=== PATIENT | male | born 1970 | race Caucasian/White ===

== ENCOUNTER 2025-06-11 08:51 | Outpatient (AMB) | payer OTHER, SELFPAY ==
--- NOTE | 2025-06-11 08:52 | MHC.OFFVIS ---
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 Pt states no loss of balance or dizziness or blurred vision. Was getting headaches w/ pre-orgasm and had to stop intercourse. This started 5 yrs ago. 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 The finding was identified on a CT scan ordered by his primary doctor for evaluation of severe, pulsating headaches with neck tension occurring during orgasm. The headaches are considered unrelated to the carotid finding. The patient's CT scan showed a 50-69% stenosis described as an eccentric, wedge-shaped filling defect at the origin of the right internal carotid artery, suspicious for a carotid web, while the left carotid artery is relatively clean. He does not have typical risk factors for carotid disease, denying a history of smoking, diabetes, high blood pressure, or high cholesterol. Past surgical history is significant for a vasectomy last January, from which he reports persistent pain, and a hiatal hernia repair for acid reflux which did not resolve his symptoms. Family history is notable for a maternal stroke in her mid-60s and a father with high blood pressure. He now presents for vascular evaluation with CT angiogram. Of note he can easily climb a flight of stairs with no issues. [facility] Social History (Updated 06/11/25 @ 09:00 by IVANA Mas) Patient Tobacco Use Status: Never used Tobacco Review of Systems Const All systems reviewed & are unremarkable except as noted in HPI and below Reports no additional complaints ENT Reports Normal hearing present Card Denies chest pain, Denies chest pain at rest, Denies chest pain with activity and Denies pedal edema Resp Denies cough GI Denies abdominal pain Musc Denies abnormal gait, Denies muscle cramps and Denies radiating pain into limb Skin/Breast Denies skin ulcer and Denies wounds Neuro Reports Normal hearing present and Denies abnormal gait Psych Reports no additional complaints Physical Exam Vital Signs: Last Vital Signs BP 110/82 06/11/25 09:03 BMI result Body Mass Index 22.7 Const General: cooperative, healthy appearing and comfortable Orientation/consciousness: oriented to person, oriented to place and oriented to time HEENT Head: Yes normal to inspection Neck Neck: Yes normal visual inspection Carotids: no bruits Chest Chest palpation & inspection: normal inspection of the chest Resp Effort & Inspection: normal respiratory effort and able to speak in complete sentences Auscultation: clear to auscultation bilaterally, no crackles, no rales, no rhonchi and no wheezes Cardio Rate: regular rate Rhythm: regular rhythm Heart sounds: S1 normal heart sound present and S2 normal heart sound present Bruits: no carotid bruits Peripheral pulses: Peripheral pulses 2+ throughout GI Inspection: Yes normal to inspection Skin Wounds: no wounds Hair: normal Neuro General: oriented to person, oriented to place and oriented to time Cranial nerves: Yes CN's II-XII intact bilaterally and Yes Normal hearing present Cognition (Neuro): normal cognition Motor exam (neuro): 5/5 motor strength present throughout Extrem Other: venous exam: No significant superficial varicosities or spider telangiectasias, minimal edema General: No clubbing, No cyanosis and No edema Psych Appearance: grossly normal Mental Status: mental status grossly normal Speech and movement: Normal speech and movement present Results Reviewed Results Reviewed: CT angiogram dated 06/03/2025 demonstrates right carotid web. Written report and images were reviewed. Images were uploaded to our system. Assessment & Plan Assessment & Plan (1) Carotid stenosis, right: Code(s): I65.21 - Occlusion and stenosis of right carotid artery Category: Medical Plan: In short patient has high-grade right carotid stenosis. We did discuss the pathophysiology of carotid disease and stroke. We also did review signs and symptoms of a stroke. Due to the unusual finding of this carotid web in his young age I do recommend right carotid endarterectomy. Risks benefits complications including but not limited to bleeding infection stroke and were discussed in detail with the patient. He understood and would like to move forward. He will require cardiac risk stratification prior to surgery. Thank you for allowing us to assist in his care. Coding Level of Care Code New Pt Level 4 (50296) Diagnoses Carotid stenosis, right I65.21
[2025-06-11 08:55] VITALS: BP 114/80; BMI 22.7
--- OUTSIDE RECORDS SUMMARY | 2025-06-11 08:56 | XMS_ITS | Encounter Summary ---
Author Organization [facility] Address [address] [place] [address] Phone Care Team Providers Care Baling Machine Operator Name Role Phone Tej Cobian CNP Primary Care Provider +1- [phone] Encounter Details Date Type Department Care Team (Late st Contact Info) Description 05/26/2025 Procedure Pass [facility], Ct Scan - [address] [address] Social History Tobacco Use Types Packs/Day Years Used Date Smoking Tobacco: Never Passive Smoke Exposure: Never Smokeless Tobacco: Never Alcohol Use Standard Drinks/Week Comments Yes 10 (1 standard drink = 0.6 oz pu re alcohol) Child or Family Care Answer Date Record ed Do you have problems with on e of the following making it difficult for you to work, study, or receive health care? No 12/11/2023 Education Answer Date Recorded Are you interested in help w ith more adult education (for example, completing high school, GED, job training, learning the [place] language, technical skills, or developing parenting skills)? No 12/11/2023 Are you concerned about learning? Not on file 12/11/2023 No 12/11/2023 Yes 12/11/2023 Food Answer Date Recorded Within the past 6 months we worried whether our food would run out before we got money to buy more. Never True 12/11/2023 Within the past 6 months the food we bought just didn't last and we didn't have enough money to get more. Never True Residential Stability Answer Date Recor ded What is your housing situation today? I have eleonora gibson 12/11/2023 How many times have you move d in the past 12 months? Zero (I did not move) 12/11/2023 Paying for Meds Answer Date Recorded Do you have trouble paying for medicines? No 12/11/2023 Paying Utility Bills Answer Date Record ed Do you have trouble paying your heating or elect ricity bill? No 12/11/2023 Transportation Answer Date Recorded Has the lack of transportati on kept you from medical appointments or from getting medications? No 12/11/2023 Digital Access Answer Date Recorded No 12/11/2023 Yes 12/11/2023 Do you have reliable internet access at home? Ye s 12/11/2023 Do you have a device (e.g., phone, tablet, computer) with a working camera? Yes 12/11/2023 Intimate Partner Violence Answer Date R ecorded Are you denied basic needs s uch as food, clothing, or medical care? No 10/27/2024 In the past 12 months have y ou been in a relationship with a person who hurts, threatens, or tries to control you? No 10/27/2024 Are you denied basic needs s uch as food, clothing, or medical care? No 10/27/2024 In the past 12 months have y ou been in a relationship with a person who hurts, threatens, or tries to control you? 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 on file Not on file Not on file documented as of this encounter Plan of Treatment Upcoming Encounters Date Type Department Care Team (Late st Contact Info) Description 07/01/2025 9:30 AM EST Office Visit [facility] [address] [place] [id number] Unknown, Unknown, Anita Queen PA-C [address] [place] [address] [email or web address] documented as of this encounter Visit Diagnoses Not on filedocumented in this encounter Additional Health Concerns Assessment Noted Time PHQ-2 Depression Total Score: 1 10/28/19 25 11:04 AM EDT documented as of this encounter Care Teams Baling Machine Operator Relationship Specialty Start Date End Date Tej Cobian CNP [address] [place] [address] [email or web address] PCP - General Family Medicine 05/15/23 documented as of this encounter Additional Source Comments The information contained in this document represents components of the legal health record. It is not the complete legal health record.[facility]
--- OUTSIDE RECORDS SUMMARY | 2025-06-11 08:57 | XMS_ITS | Encounter Summary ---
Author Organization [facility] Address [address] [place] [address] Phone Care Team Providers Care Cherry Sorter Name Role Phone Tej Cobian CNP Primary Care Provider +1- [phone] Encounter Details Date Type Department Care Team ([facility] st Contact Info) Description 11/28/2023 Procedure Pass [facility] Endoscopy Admitting Dept Virtual Department [address] [place] [address] Social History Tobacco Use Types Packs/Day Years Used Date Smoking Tobacco: Never Passive Smoke Exposure: Never Smokeless Tobacco: Never Child or Family Care Answer Date Record ed Do you have problems with on e of the following making it difficult for you to work, study, or receive health care? No 05/09/2023 Education Answer Date Recorded Are you interested in help w ith more adult education (for example, completing high school, GED, job training, learning the [place] language, technical skills, or developing parenting skills)? No 05/09/2023 Are you concerned about learning? Not on file 05/09/2023 No 05/09/2023 Yes 05/09/2023 Food Answer Date Recorded Within the past 6 months we worried whether our food would run out before we got money to buy more. Never True 05/09/2023 Within the past 6 months the food we bought just didn't last and we didn't have enough money to get more. Never True Residential Stability Answer Date Recor ded What is your housing situation today? I have eleonora sing 05/09/2023 How many times have you move d in the past 12 months? Zero (I did not move) 05/09/2023 Paying for Meds Answer Date Recorded Do you have trouble paying for medicines? No 05/09/2023 Paying Utility Bills Answer Date Record ed Do you have trouble paying your heating or elect ricity bill? No 05/09/2023 Transportation Answer Date Recorded Has the lack of transportati on kept you from medical appointments or from getting medications? No 05/09/2023 Digital Access Answer Date Recorded No 05/09/2023 Yes 05/09/2023 Do you have reliable internet access at home? Ye s 05/09/2023 Do you have a device (e.g., phone, tablet, computer) with a working camera? Yes 05/09/2023 Sex and Gender Information Value Date Recorded Sex Assigned at Not on file Legal Sex Male 9:52 AM EST Gender Identity Not on file Sexual Orientation Not on file documented as of this encounter Plan of Treatment Upcoming Encounters Date Type Department Care Team (Late st Contact Info) Description 07/01/2025 9:30 AM EST Office Visit [facility] [address] [place] [address] Unknown, Unknown, Anita Queen PA-C [address] [address] documented as of this encounter Visit Diagnoses Not on filedocumented in this encounter Additional Health Concerns Assessment Noted Time PHQ-2 Depression Total Score: 0 05/09/20 23 1:43 PM EST documented as of this encounter Care Teams Cherry Sorter Relationship Specialty Start Date End Date Tej Cobian CNP [address] [facility] [address] PCP - General Family Medicine 05/15/23 documented as of this encounter Additional Source Comments The information contained in this document represents components of the legal health record. It is not the complete legal health record.[facility]
--- OUTSIDE RECORDS SUMMARY | 2025-06-11 08:57 | XMS_ITS | Encounter Summary ---
Author Organization [facility] Address [address] [place] [phone] Phone Care Team Providers Care Radius Corner Machine Operator Name Role Phone Tej Cobian CNP Primary Care Provider +1- [phone] Encounter Details Date Type Department Care Team (Late st Contact Info) Description 05/01/2024 Procedure Pass [place] Admitting Dept - Virtual Department [address] [place] [address] Social History Tobacco Use Types Packs/Day Years [...] high school, GED, job training, learning the [place] language, technical skills, or developing parenting skills)? [...] housing situation today? I have eleonora sing 12/11/2023 How many times have you move [...] as food, clothing, or medical care? No 05/01/2024 In the past 12 months have y ou been in a relationship with a person who hurts, threatens, or tries to control you? No 05/01/2024 Are you denied basic needs s uch as food, clothing, or medical care? No 05/01/2024 In the past 12 months have y ou been in a relationship with a person who hurts, threatens, or tries to control you? No 05/01/2024 Sex and Gender Information Value Date Recorded [...] Description 07/01/2025 9:30 AM EST Office Visit [facility] [address] [place] [phone] Unknown, Unknown, Anita Queen PA-C [address] [place] [address] [email or web address] documented as of this encounter Visit Diagnoses Not on filedocumented in this encounter Additional Health Concerns Assessment Noted Time PHQ-2 Depression Total Score: 0 12/11/19 8:58 AM EDT documented as of this encounter Care Teams Radius Corner Machine Operator Relationship Specialty Start Date End Date Tej Cobian CNP [address] [place] [address] [email or web address] PCP - General Family Medicine 05/15/23 documented as of this encounter Additional Source Comments The information contained in this document represents components of the legal health record. It is not the complete legal health record.[facility]
--- OUTSIDE RECORDS SUMMARY | 2025-06-11 08:57 | XMS_ITS | Data Portability ---
Author Organization [facility], [employer] Address [address] [place] [id number] Assessment Encounter Date Assessment Date Assessment LastModified by Organization Details LastModified Time 10/25/2022 10/25/2022 Number and Complexity of Problems Addressed: Moderate Amount and/or Complexity of Data to be Reviewed and Analyzed: Moderate Risk of Complications and/or Morbidity and Mortality of Patient Management: Not available 10/25/2022 15:37:17 Plan of Treatment Reminders Order Date Submit Date Provider Last Modified By Organization Details Last Modified Time Details Appointments None record ed. Lab None record ed. Referral None record ed. Procedures None record ed. Surgeries None record ed. Imaging None record ed. Medication Orders None record ed. Patient TargetsNo targets recorded. Patient InstructionsNo instructions recorded. Reason for Referral None Reported. Results Created Date Observation Date Name Description Value Unit Range Abnormal Flag Note LastModifiedBy Organization Detail LastModifiedTime 10/27/1910/26/2022 COMPL ETE BLOOD COUNT WBC 5.0 K/mm3 (4.0-1 1.0) Not Available [facility] (Centralized Electronic Ordering - All Locations) Patient Can Go To The Location Of Their Choice, [id number] 10/26/2022 16:04:36 10/27/1910/26/2022 COMPL ETE BLOOD COUNT RBC 5.34 M/mm3 (4.70- 6.10) Not Available [facility] (Centralized Electronic Ordering - All Locations) Patient Can Go To The Location Of Their Choice, [id number] 10/26/2022 16:04:36 10/27/1910/26/2022 COMPL ETE BLOOD COUNT HGB 16.1 gm/dL (13.7- 17.1) Not Available [facility] (Centralized Electronic Ordering - All Locations) Patient Can Go To The Location Of Their Choice, 10/26/2022 16:04:36 10/27/1910/26/2022 COMPL ETE BLOOD COUNT HCT 48.4 % (40.5- 50.0) Not Available [facility] (Centralized Electronic Ordering - All Locations) Patient Can Go To The Location Of Their Choice, 10/26/2022 16:04:36 10/27/1910/26/2022 COMPL ETE BLOOD COUNT MCV 90.6 fL (80.0- 94.0) Not Available [facility] (Centralized Electronic Ordering - All Locations) Patient Can Go To The Location Of Their Choice, 10/26/2022 16:04:36 10/27/1910/26/2022 COMPL ETE BLOOD COUNT MCH 30.1 pg (27.0- 34.0) Not Available [facility] (Centralized Electronic Ordering - All Locations) Patient Can Go To The Location Of Their Choice, 10/26/2022 16:04:36 10/27/1910/26/2022 COMPL ETE BLOOD COUNT MCHC 33.3 g/dL (33.0- 37.0) Not Available [facility] (Centralized Electronic Ordering - All Locations) Patient Can Go To The Location Of Their Choice, 10/26/2022 16:04:36 10/27/1910/26/2022 COMPL ETE BLOOD COUNT plt 254 K/mm3 (150-4 60) Not Available [facility] (Centralized Electronic Ordering - All Locations) Patient Can Go To The Location Of Their Choice, 10/26/2022 16:04:36 10/27/1910/26/2022 COMPL ETE BLOOD COUNT RDW-SD 41.8 fL (<47.0 ) Not Available [facility] (Centralized Electronic Ordering - All Locations) Patient Can Go To The Location Of Their Choice, 10/26/2022 16:04:36 10/27/1910/26/2022 COMPL ETE BLOOD COUNT MPV 8.9 fL (9.4-1 2.4) low Not Available [facility] (Centralized Electronic Ordering - All Locations) Patient Can Go To The Location Of Their Choice, 10/26/2022 16:04:36 10/27/1910/26/2022 COMPL ETE BLOOD COUNT automated NRBC 0.0 #/100 _WBC' s Not Available [facility] (Centralized Electronic Ordering - All Locations) Patient Can Go To The Location Of Their Choice, 10/26/2022 16:04:36 10/27/1910/26/2022 COMPL ETE BLOOD COUNT abs. NRBC 0.0 K/mm3 Not Available [facility] (Centralized Electronic Ordering - All Locations) Patient Can Go To The Location Of Their Choice, 10/26/2022 16:04:36 10/27/1910/26/2022 COMPR EHENS MIKHAIL METAB OLIC PANL glucose 96 mg/dL (70-99 ) Not Available [facility] (Centralized Electronic Ordering - All Locations) Patient Can Go To The Location Of Their Choice, 10/26/2022 16:49:54 10/27/1910/26/2022 COMPR EHENS MIKHAIL METAB OLIC PANL BUN 17 mg/dL (6-20) Not Available [facility] (Centralized Electronic Ordering - All Locations) Patient Can Go To The Location Of Their Choice, 10/26/2022 16:49:54 10/27/1910/26/2022 COMPR EHENS MIKHAIL METAB OLIC PANL creatinine 1.1 mg/dL (0.7-1 .2) Not Available [facility] (Centralized Electronic Ordering - All Locations) Patient Can Go To The Location Of Their Choice, 10/26/2022 16:49:54 10/27/1910/26/2022 COMPR EHENS MIKHAIL METAB OLIC PANL sodium 141 mmol/ L (133-1 45) Not Available [facility] (Centralized Electronic Ordering - All Locations) Patient Can Go To The Location Of Their Choice, 10/26/2022 16:49:54 10/27/1910/26/2022 COMPR EHENS MIKHAIL METAB OLIC PANL potassium 4.5 mmol/ L (3.6-5 .2) Not Available [facility] (Centralized Electronic Ordering - All Locations) Patient Can Go To The Location Of Their Choice, 10/26/2022 16:49:54 10/27/1910/26/2022 COMPR EHENS MIKHAIL METAB OLIC PANL chloride 105 mmol/ L (98-10 7) Not Available [facility] (Centralized Electronic Ordering - All Locations) Patient Can Go To The Location Of Their Choice, 10/26/2022 16:49:54 10/27/1910/26/2022 COMPR EHENS MIKHAIL METAB OLIC PANL bicarbonate 26 mmol/ L (22-29 ) Not Available [facility] (Centralized Electronic Ordering - All Locations) Patient Can Go To The Location Of Their Choice, 10/26/2022 16:49:54 10/27/1910/26/2022 COMPR EHENS MIKHAIL METAB OLIC PANL anion gap 10 (4-17) Not Available [facility] (Centralized Electronic Ordering - All Locations) Patient Can Go To The Location Of Their Choice, 10/26/2022 16:49:54 10/27/1910/26/2022 COMPR EHENS MIKHAIL METAB OLIC PANL albumin 4.5 gm/dL (3.4-4 .8) Not Available [facility] (Centralized Electronic Ordering - All Locations) Patient Can Go To The Location Of Their Choice, 10/26/2022 16:49:54 10/27/1910/26/2022 COMPR EHENS MIKHAIL METAB OLIC PANL calcium 9.4 mg/dL (8.6-1 0.5) Not Available [facility] (Centralized Electronic Ordering - All Locations) Patient Can Go To The Location Of Their Choice, 10/26/2022 16:49:54 10/27/1910/26/2022 COMPR EHENS MIKHAIL METAB OLIC PANL bilirubin,to tariq 0.6 mg/dL (0-1.2 ) Not Available [facility] (Centralized Electronic Ordering - All Locations) Patient Can Go To The Location Of Their Choice, 10/26/2022 16:49:54 10/27/1910/26/2022 COMPR EHENS MIKHAIL METAB OLIC PANL total protein 7.0 gm/dL (6.2-8 .2) Not Available [facility] (Centralized Electronic Ordering - All Locations) Patient Can Go To The Location Of Their Choice, 10/26/2022 16:49:54 10/27/1910/26/2022 COMPR EHENS MIKHAIL METAB OLIC PANL Ag ratio 1.8 Not Available [facility] (Centralized Electronic Ordering - All Locations) Patient Can Go To The Location Of Their Choice, 10/26/2022 16:49:54 10/27/1910/26/2022 COMPR EHENS MIKHAIL METAB OLIC PANL AST 33 U/L (0-40) Not Available [facility] (Centralized Electronic Ordering - All Locations) Patient Can Go To The Location Of Their Choice, 10/26/2022 16:49:54 10/27/1910/26/2022 COMPR EHENS MIKHAIL METAB OLIC PANL alk phos 57 U/L (40-12 9) Not Available [facility] (Centralized Electronic Ordering - All Locations) Patient Can Go To The Location Of Their Choice, 10/26/2022 16:49:54 10/27/1910/26/2022 COMPR EHENS MIKHAIL METAB OLIC PANL ALT 51 U/L (0-41) high Not Available [facility] (Centralized Electronic Ordering - All Locations) Patient Can Go To The Location Of Their Choice, 10/26/2022 16:49:54 10/27/1910/26/2022 COMPR EHENS MIKHAIL METAB OLIC PANL estimated GFR creatinine 77 mL/mi n/1.7 3_M2 Creat inine based estim ated glome rular filtr ation (eGFR ) in adult s is calcu lated using the Natio nal Kidne y Found ation recom sadaf d 2020 CKD-E PI equat ion. Estim ates GFR from serum creat inine , age and sex. Not Available [facility] (Centralized Electronic Ordering - All Locations) Patient Can Go To The Location Of Their Choice, 10/26/2022 16:49:54 10/27/1910/26/2022 LIPID PANEL cholesterol, total 209 mg/dL (<200) high Not Available [facility] (Centralized Electronic Ordering - All Locations) Patient Can Go To The Location Of Their Choice, 10/26/2022 16:49:55 10/27/1910/26/2022 LIPID PANEL triglyceride 81 mg/dL (<150) Not Available [facility] (Centralized [facility] Ordering - All Locations) Patient Can Go To The Location Of Their Choice, 10/26/2022 16:49:55 10/27/1910/26/2022 LIPID PANEL HDL chol 62 mg/dL (>39) Not Available [facility] (Centralized Electronic Ordering - All Locations) Patient Can Go To The Location Of Their Choice, 10/26/2022 16:49:55 10/27/1910/26/2022 LIPID PANEL LDL cholesterol, calculated 131 mg/dL (0-130 ) high Not Available [facility] (Centralized Electronic Ordering - All Locations) Patient Can Go To The Location Of Their Choice, 10/26/2022 16:49:55 10/27/1910/26/2022 LIPID PANEL non HDL cholesterol (calc) 147 mg/dL (<160) Not Available [facility] (Centralized Electronic Ordering - All Locations) Patient Can Go To The Location Of Their Choice, 10/26/2022 16:49:55 10/27/1910/26/2022 TSH WITH REFLE X TO FT4 TSH 2.16 uIU/m L (0.4-4 .2) Not Available [facility] (Centralized Electronic Ordering - All Locations) Patient Can Go To The Location Of Their Choice, 10/26/2022 16:54:25 10/27/1910/27/2022 ANTI- HEPAT ITIS C W/RFL X HCV QNT anti-hepatit is C (neg) normal NEGAT MIKHAIL Refer ence range : Negat mikhail This test was perfo rmed on the Abbot t Archi tect immun oassa y syste m. Not Available [facility] (Centralized Electronic Ordering - All Locations) Patient Can Go To The Location Of Their Choice, 10/27/2022 00:02:06 Result Notes None recorded. Problems Name Problem SNOMED Code Status Onset Date Resolution Date Notes Provider Name and Address Organization Details Recorded Time Basal cell carcinoma of skin 258522567 Active 2022 2016-fol lowed by [facility] Dragan Valdes NP [address] [facility] [address], [place], [address] , [facility] 15:11:11 Gastroesopha geal reflux disease 860290507 Active 2022 Bea Valdes NP [address] [facility] [address], [place], [address], [place] [facility] 3 15:11:21 Hiatal hernia 79940468 Active 2022 Bea Valdes NP [address] [facility] [address], [facility] [place], [address], [place] [facility] 15:13:11 Metabolic dysfunction- associated steatohepati tis 529157492 Active 2022 Bea Valdes NP [address] [address], [place], [address], [place] [facility] 11:28:27 Problem Notes None recorded. Procedures Surgical History Date Name Laterality Status Provider Name and Address Organization Details Recorded Time 1 Colonoscopy completed Bea Valdes NP [address] [address], [place], [address], [place] [facility] 10/25/2022 15:12:11 Imaging Results None recorded. Procedure Notes None recorded. Medical Equipment None Reported. Allergies No known drug allergies Medications Name Sig Start Date Stop Date Status Note LastModified by Organization Details LastModified Time valacyclovi r 500 mg tablet Take 1 Tablet Daily by Mouth active Not Available Not Available No t Available doxycycline monohydrate 100 mg capsule active Not Available Not Available Not Available lansoprazol e 30 mg capsule,del ayed release Take 1 Tablet daily by Mouth active Not Available Not Available No t Available fluocinonid e 0.05 % topical cream APPLY 2 TIMES DAILY TO AFFECTED AREAS FOR TWO WEEKS active Not Available Not Available No t Available Paxlovid 300 mg (150 mg x 2)-100 mg tablets in a dose pack TAKE 3 TABLETS BY MOUTH TWICE A DAY FOR 5 DAYS 10/24 completed Not Available Not Available Not Available Vitals Date Recorded Body weight Body mass index (BMI) Body height Oxygen saturation Heart rate Systolic And Diastolic Provider Name and Address Organization Details Last Updated DateTime 3 69256.8 7 g 23.4 kg/m2 190.5 cm 98 % 75 /min 116/78 mm[Hg] Anh Luz [place] - [facility] 15:03:27 Date Recorded Body height Body mass index (BMI) Body weight Oxygen saturation Heart rate Systolic And Diastolic Provider Name and Address Organization Details Last Updated DateTime 3 187.96 cm 24 kg/m2 61612.4 7 g 98 % 74 /min 122/78 mm[Hg] Anh Luz [place] - [facility] 10:58:11 Social History Question Answer Notes LastModified by Organizat ion Details LastModified Time Tobacco Smoking Status Never Smoker Anh Luz null, [place] [facility] 10/25/2022 14:57:31 Do You Have An Advance Directive? Yes Information not available 10/25/2022 How Many Children Do You Have? 4 Information not available 10/27/2022 What Is Your Relationship Status? Information not available 10/27/2022 Sex: Unknown Functional Status Question Answer Note LastModified by Organizat ion Details LastModified Time Do you use any illicit or recreational drugs? No Information not available 10/25/2022 What is your level of alcohol consumption? 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 None Information not available 10/27/2022 Mental Status None recorded. Family History Relationship Description Onset Age of this Age Resolved Age Notes LastModified by Organization Details LastModified Time Father Malignant lymphoma [email or web address] Not available 2022 15:13:35 Medical History No medical history recorded. Immunizations Vaccine Type Date Status Note Provider Nam e and Address Organization Details Recorded Time zoster recombinant 06/19/2020 completed Bea Valdes NP [address], [address], [place] [facility] 10/25/2022 15:19:12 zoster recombinant 08/17/2020 completed Bea Valdes NP [address], [address], [place] [facility] 10/25/2022 15:19:16 Tdap 10/25/2022 julio Valdes NP [address], [address], [place] [facility] 10/25/2022 15:36:30 Past Encounters Encounter ID Performer Location Encounter Start Date Encounter Closed Date Diagnosis/Indication Diagnosis SNOMED-CT Code Diagnosis ICD10 Code Diagnosis IMO Codes Diagnosis Note [id number] Bea Valdes NP [facility] [address] [facility] [place] [address] 10/25/2022 14:51:37 10/25/2022 15:28:18 Active or passive immunization 478567756 Z23 Gastroesop hageal reflux disease 425194891 K21.9 On PPI, may be interested in repeating EGD/colo. I will review his GI note and advise further. Basal cell carcinoma of skin 041959305 C44.91 Followed every 6 months by [facility]. [id number] Bea Valdes NP [facility] [address] [facility] [place] [address] 10/27/2022 10:51:54 10/27/2022 11:24:04 Adult health examination 878817351 Z00.00 52 year old male here for his annual physical. Immunizati ons and colonoscop y are up to date. Basal cell carcinoma of skin 493233018 C44.91 Followed every 6 months by [facility]. Gastroesop hageal reflux disease 051961877 K21.9 On PPI, may be interested in repeating EGD/colo. He is weighing pros and cons of repeating EGD/colo sooner than the 3 year recommenda tion. Metabolic dysfunction-associate d steatohepatitis 713551828 K75.81 ALT mildly elevated but he reports this is better than the previous value. Health Concerns Section Related Observation LastModified by Organization Detai ls LastModified Time None Recorded Concern Status LastModified by Organization Details LastModified Time None Recorded Advance Directives Directive Y: Payers Insurance Date Sequence Insurance Name Policy Number Policy Andrews Covered Member ID Andrews Member ID Guarantor Name 04/13/2023 1 [facility] [id number] Tori Cedeno [id number] Mariano Kwok Notes Date Note Type Note Provider Name and Address Organization Details Recorded Time 10/25/2022 text/html ROS as noted in the HPI Here as a new patient to the practice, moved here from [place] last year. He is overall feeling well. Due for a physical, which is actually scheduled in 2 days from now. He will need labs. Due for a tdap. He is up to date on colonoscopy. Bea Valdes NP [address] [facility] [address], [place], [address], [place] [facility] 10/25/2022 15:38:31 10/27/2022 text/html Here for his annual physical. Overall feeling well. He does have chronic right elbow tendonitis. He also has some difficulty sleeping. He has used trazodone and ambien in the past with side effects. He has not tried benadryl, unisom or hydroxyzine.Labs are all WNL, colonoscopy and immunizations are up to date. Bea Valdes NP [address] [facility] [address], [place], [address], [place] [facility] 10/27/2022 11:30:04
--- OUTSIDE RECORDS SUMMARY | 2025-06-11 08:57 | XMS_ITS | Encounter Summary ---
Author Organization [facility] Address [address] [place] [address] Phone Care Team Providers Care Cocoa Bean Cleaner Name Role Phone Tej Cobian CNP Primary Care Provider [phone]- [phone] Reason for Referral * Consultation (Within 3 days (urgent)) - Authorized Specialty Diagnoses / Procedures Referred By Contac t Referred To Contact Diagnoses Abnormal computed tomography angiography (CTA) Tej Cobian CNP [address] [place] [address] Phone: tel: fax: mailto: Sal Diana MD [address] [place] [address] Phone: tel: Referral ID Status Reason Start Date Expiration Date V isits Requested Visits Authorized [id number] Authorized 06/05/2025 06/05/2026 99 99 Reason for Visit * Reason Onset Date Comments Follow-up 06/05/2025 callback Encounter Details Date Type Department Care Team (Late st Contact Info) Description 06/05/2025 Telephone [facility] [address] [place] [address] Tej Cobian CNP [address] [place] [address] Follow-up (callback) Social History Tobacco Use Types Packs/Day Years [...] high school, GED, job training, learning the Azerbaijani language, technical skills, or developing parenting skills)? [...] on file documented as of this encounter Progress Notes * Ayana Pickett RN - 06/06/2025 1:39 PM EST [facility] called back on back line; patient is scheduled for next Monday 06/11 with theiroffice. * Tej Cobian CNP - 06/06/2025 12:01 PM EST Spoke with Dr. Diana's office. Received CTA and referral. Advise that Dr. Diana is out of the office but is going to reach out to him to review the imaging and determine if urgent or not and/or if needs to be seen by endovascular. Office will call back on back line with update once they hear from * Maryls An LPN - 06/06/2025 8:40 AM EST Faxed * Jonas Ortiz RN - 06/05/2025 4:27 PM EST Fax for Dr. Diana: * Tej Cobian CNP - 06/05/2025 3:16 PM EST Spoke with patient. 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 Encourage to start Aspirin 81 mg. Urgent referral also sent to vascular, advised if does not hear with appt by next week to notify our office * Patt Benz - 06/05/2025 2:57 PM EST Pt called back after missing call from P Vern.please contact and advise Central Support Patch Setter (Please do not reply to this user; this inbox is not monitored.) Thank you. documented in this encounter Plan of Treatment Upcoming Encounters Date Type Department Care Team (Late st Contact Info) Description 07/01/2025 9:30 AM EST Office Visit [facility] [address] [place] [address] Unknown, Unknown, Anita Queen PA-C [address] [address] [email or web address] Scheduled Referrals Name Type Priority Associated Diagnoses Orde r Schedule Ambulatory referral to External Vascular Medicine Outpatient Referral Routine Abnormal computed tomography angiography (CTA) Ordered: 06/05/2025 documented as of this encounter Visit Diagnoses Diagnosis Abnormal computed tomography angiography (CTA)- Primary documented in this encounter Additional Health Concerns Assessment Noted Time PHQ-2 Depression Total Score: 1 10/28/19 25 11:04 AM EDT documented as of this encounter Care Teams Cocoa Bean Cleaner Relationship Specialty Start Date End Date Tej Cobian CNP [address] [place] [address] PCP - General Family Medicine 05/15/23 documented as of this encounter Additional Source Comments The information contained in this document represents components of the legal health record. It is not the complete legal health record.[facility]
--- OUTSIDE RECORDS SUMMARY | 2025-06-11 08:57 | XMS_ITS | Encounter Summary ---
Author Organization [facility] Address [address] [place] [address] Phone Care Team Providers Care Retail Loss Prevention Investigator Name Role Phone Tej Cobian CNP Primary Care Provider +1- [phone] Encounter Details Date Type Department Care Team (Late st Contact Info) Description 01/03/2024 Procedure Pass [facility] Endoscopy Admitting Dept Virtual Department [address] [place] [address] Social History Tobacco Use Types Packs/Day Years Used Date Smoking Tobacco: Never Passive Smoke Exposure: Never Smokeless Tobacco: Never Alcohol Use Standard Drinks/Week Comments Yes 5 (1 standard drink = 0.6 oz pur e alcohol) 5 per week Child or Family Care Answer Date Record ed Do you have problems with on e of the following making it difficult for you to work, study, or receive health care? No 12/11/2023 Education Answer Date Recorded Are you interested in help w ith more adult education (for example, completing high school, GED, job training, learning the Samoan language, technical skills, or developing parenting skills)? [...] computer) with a working camera? Yes 12/11/2023 Sex and Gender Information Value Date Recorded Sex Assigned at Not on file Legal Sex Male 9:52 AM EST Gender Identity Not on file Sexual Orientation Not on file documented as of this encounter Plan of Treatment Upcoming Encounters Date Type Department Care Team (Late st Contact Info) Description 07/01/2025 9:30 AM EST Office Visit [facility] [address] [place] [address] Unknown, Unknown, Anita Queen PA-C [address] [address] documented as of this encounter Visit Diagnoses Not on filedocumented in this encounter Additional Health Concerns Assessment Noted Time PHQ-2 Depression Total Score: 0 12/11/19 8:58 AM EDT documented as of this encounter Care Teams Retail Loss Prevention Investigator Relationship Specialty Start Date End Date Tej Cobian CNP [address] [facility] [place] [address] PCP - General Family Medicine 05/15/23 documented as of this encounter Additional Source Comments The information contained in this document represents components of the legal health record. It is not the complete legal health record.[facility]
--- OUTSIDE RECORDS SUMMARY | 2025-06-11 08:57 | XMS_ITS | Encounter Summary ---
Author Organization [facility] Address [address] [place] [address] Phone Care Team Providers Care Evp Global Product Leadership Name Role Phone Tej Cobian CNP Primary Care Provider +1- [phone] Encounter Details Date Type Department Care Team (Late st Contact Info) Description 01/05/2024 Procedure Pass [facility] Endoscopy Admitting Dept Virtual Department [address] [place] [address] Social History Tobacco Use Types Packs/Day Years [...] high school, GED, job training, learning the Puerto Rican language, technical skills, or developing parenting skills)? [...] Description 07/01/2025 9:30 AM EST Office Visit [facility] [address] [place] [address] Unknown, Unknown, Anita Queen PA-C [address] [address] documented as of this encounter Visit Diagnoses Not on filedocumented in this encounter Additional Health Concerns Assessment Noted Time PHQ-2 Depression Total Score: 0 12/11/19 8:58 AM EDT documented as of this encounter Care Teams Evp Global Product Leadership Relationship Specialty Start Date End Date Tej Cobian CNP [address] [facility] [place] [address] PCP - General Family Medicine 05/15/23 documented as of this encounter Additional Source Comments The information contained in this document represents components of the legal health record. It is not the complete legal health record.[facility]
--- OUTSIDE RECORDS SUMMARY | 2025-06-11 08:57 | XMS_ITS | Encounter Summary ---
Author Organization [facility] Address [address] [place] [address] Phone Care Team Providers Care Rerecording Mixer Name Role Phone Tej Cobian CNP Primary Care Provider +1- [phone] Reason for Referral * MRI/CAT Scan - Closed Specialty Diagnoses / Procedures Referred By Nory prater Referred To Contact Radiology Diagnoses Orgasmic headache Procedures CT Angio Head and Neck CT Angio Head CT ANGIO NECK Tej Cobian CNP [address] [place] [address] Phone: tel: fax: mailto: Referral ID Status Reason Start Date Expiration Date Visits Re quested Visits Authorized [id number] Closed 05/26/2025 05/27/2026 1 1 Encounter Details Date Type Department Care Team (Late st Contact Info) Description 06/03/2025 Ancillary Orders [facility] [address] [place] [address] Tej Cobian CNP [address] [place] [address] [email or web address] History of herpes genitalis (Primary Dx); Orgasmic headache; Persistent testicular pain Social History Tobacco Use Types Packs/Day Years [...] high school, GED, job training, learning the Guyanese language, technical skills, or developing parenting skills)? [...] Description 07/01/2025 9:30 AM EST Office Visit [facility] [address] [place] [address] Unknown, Unknown, Anita Queen PA-C [address] [address] [email or web address] documented as of this encounter Results * CT ANGIO HEAD WITH AND WITHOUT CONTRAST, CT ANGIO NECK WITH CONTRAST (06/03/2025 4:09 PM EST) Anatomical Region Laterality Modality Neck Computed Tomogra phy 06/05/2025 9:19 AM EST Impressions 06/05/2025 9:43 AM EST 1. Eccentric wedge-shaped filling defect at the origin of the right internal carotid artery, resulting in moderate stenosis, most suspicious for a carotid web. 2. Mild stenosis at the origin of the left internal carotid artery. 3. No acute territorial infarct or intracranial hemorrhage. Narrative 06/05/2025 9:[address] ANGIO HEAD WITH AND WITHOUT CONTRAST, CT ANGIO NECK WITH CONTRAST, CT ANGIO NECK WITH CONTRAST Referring clinician's provided indication for this examination in Epic: *Other Anomalies Or Syndromes TECHNIQUE: Multidetector-row CTA of the head was performed before and after administration of intravenous contrast using tailored dose modulation techniques. Images were reconstructed in the axial, coronal, and sagittal planes, including angiographic image post-processing. 3D angiographic images with reformatting and post- processing reconstructions were performed and interpreted. Multidetector-row CTA of neck was also performed after administration of intravenous contrast using tailored dose modulation techniques. Images were reconstructed in the axial, coronal, and sagittal planes. 3D angiographic images with reformatting and post-processing reconstructions were performed and interpreted. COMPARISON: None. (accession [id number]), CT HEAD WITHOUT CONTRAST (accession [id number]) FINDINGS: HEAD CT: Brain Parenchyma: There is no mass-effect, midline shift, or space-occupying lesion. There is no acute territorial infarct or intracranial hemorrhage. Ventricular System and Extra-Axial Spaces: The ventricles, sulci and cisterns are age-appropriate. There is no extra-axial fluid collection. Osseous and Extracranial Structures: There is no displaced calvarial fracture. The visualized paranasal sinuses are clear. The mastoid air cells are clear. The orbits and soft tissues are unremarkable. CTA HEAD: Anterior Circulation: The intracranial internal carotid arteries are normal in configuration. The anterior and middle cerebral arteries are patent with normal contrast enhancement and branching pattern. There is a normal anterior communicating artery complex. Posterior Circulation: The vertebral and basilar arteries demonstrate normal enhancement without stenosis or occlusion. The posterior cerebral arteries have a normal caliber and branching pattern. Venous Structures: Normal. No thrombosis. CTA NECK: Aortic Arch and Origin of Major Cervical Vessels: The visualized aortic arch and origins of the major vessels are unremarkable. Right Common Carotid Artery: Normal. No stenosis, occlusion or dissection. Right Internal Carotid Artery: There is an eccentric wedge-shaped filling defect on the posterior aspect the origin of the right internal carotid artery, resulting in moderate stenosis. There is distal reconstitution. Left Common Carotid Artery: Normal. No stenosis, occlusion or dissection. Left Internal Carotid Artery: Calcified atherosclerotic plaque is present at the carotid bulb resulting in mild stenosis of the proximal internal carotid artery. External Carotid Arteries: Normal. No stenosis, occlusion or dissection. Right Vertebral Artery: Normal. No stenosis, occlusion or dissection. Left Vertebral Artery: Normal. No stenosis, occlusion or dissection. Venous Structures: Normal. The jugular veins enhance normally. NON-VASCULAR FINDINGS Thyroid: Normal. No thyroid nodules. Lines/tubes: None. Lungs and Airways: Normal. No mass in the imaged lung apices and central airways. Soft Tissues: Normal. No adenopathy. Bones: Normal. CAROTID STENOSIS REFERENCE: -Distal internal carotid artery diameter as the denominator for stenosis measurement: MILD = <50% stenosis. MODERATE = 50-69% stenosis. SEVERE = 70-89% stenosis. HAIRLINE/CRITICAL = 90-99% stenosis. OCCLUDED = 100% stenosis. Procedure Note Diaz Gaytan MD - 06/05/2025 CT ANGIO HEAD WITH AND WITHOUT CONTRAST, CT ANGIO NECK WITH CONTRAST, CTANGIO NECK WITH CONTRAST Referring clinician's provided indication for this examination in Epic:*Other Anomalies Or Syndromes TECHNIQUE: Multidetector-row CTA of the head was performed before and afteradministration of intravenous contrast using tailored dose modulationtechniques. Images were reconstructed in the axial, coronal, and sagittalplanes, including angiographic image post-processing. 3D angiographicimages with reformatting and post-processing reconstructions wereperformed and interpreted. Multidetector-row CTA of neck was also performed after administration ofintravenous contrast using tailored dose modulation techniques. Imageswere reconstructed in the axial, coronal, and sagittal planes. 3Dangiographic images with reformatting and post-processing reconstructionswere performed and interpreted. COMPARISON: None. (accession [id number]), CT HEAD WITHOUT [id number] (accession [id number]) FINDINGS: HEAD CT: Brain Parenchyma: There is no mass-effect, midline shift, orspace-occupying lesion. There is no acute territorial infarct orintracranial hemorrhage. Ventricular System and Extra-Axial Spaces: The ventricles, sulci andcisterns are age-appropriate. There is no extra-axial fluid collection. Osseous and Extracranial Structures: There is no displaced calvarialfracture. The visualized paranasal sinuses are clear. The mastoid aircells are clear. The orbits and soft tissues are unremarkable. CTA HEAD: Anterior Circulation: The intracranial internal carotid arteries arenormal in configuration. The anterior and middle cerebral arteries arepatent with normal contrast enhancement and branching pattern. There is anormal anterior communicating artery complex. Posterior Circulation: The vertebral and basilar arteries demonstratenormal enhancement without stenosis or occlusion. The posterior cerebralarteries have a normal caliber and branching pattern. Venous Structures: Normal. No thrombosis. CTA NECK: Aortic Arch and Origin of Major Cervical Vessels: The visualized aorticarch and origins of the major vessels are unremarkable. Right Common Carotid Artery: Normal. No stenosis, occlusion or dissection. Right Internal Carotid Artery: There is an eccentric wedge-shaped fillingdefect on the posterior aspect the origin of the right internal carotidartery, resulting in moderate stenosis. There is distal reconstitution. Left Common Carotid Artery: Normal. No stenosis, occlusion ordissection. Left Internal Carotid Artery: Calcified atherosclerotic plaque is presentat the carotid bulb resulting in mild stenosis of the proximal internalcarotid artery. External Carotid Arteries: Normal. No stenosis, occlusion or dissection. Right Vertebral Artery: Normal. No stenosis, occlusion or dissection. Left Vertebral Artery: Normal. No stenosis, occlusion or dissection. Venous Structures: Normal. The jugular veins enhance normally. NON-VASCULAR FINDINGS Thyroid: Normal. No thyroid nodules. Lines/tubes: None. Lungs and Airways: Normal. No mass in the imaged lung apices and centralairways. Soft Tissues: Normal. No adenopathy. Bones: Normal. CAROTID STENOSIS REFERENCE: -Distal internal carotid artery diameter as the denominator for stenosismeasurement: MILD = <50% stenosis. MODERATE = 50-69% stenosis. SEVERE = 70-89% stenosis. HAIRLINE/CRITICAL = 90-99% stenosis. OCCLUDED = 100% stenosis. IMPRESSION: 1. Eccentric wedge-shaped filling defect at the origin of the rightinternal carotid artery, resulting in moderate stenosis, most suspiciousfor a carotid web. 2. Mild stenosis at the origin of the left internal carotid artery. 3. No acute territorial infarct or intracranial hemorrhage. Tej Cobian CNP G CT HEAD/NECK Final Res ult documented in this encounter Visit Diagnoses Diagnosis Orgasmic headache Headache associated with sexual activity History of herpes genitalis- Primary Orgasmic headache Headache associated with sexual activity Persistent testicular pain documented in this encounter Additional Health Concerns Assessment Noted Time PHQ-2 Depression Total Score: 1 10/28/19 25 11:04 AM EDT documented as of this encounter Care Teams Rerecording Mixer Relationship Specialty Start Date End Date Tej Cobian CNP [address] [place] [address] [email or web address] PCP - General Family Medicine 05/15/23 documented as of this encounter Additional Source Comments The information contained in this document represents components of the legal health record. It is not the complete legal health record.[facility]
--- OUTSIDE RECORDS SUMMARY | 2025-06-11 08:57 | XMS_ITS | Encounter Summary ---
Author Organization [facility] Address [address] [place] [address] Phone Care Team Providers Care Forestry Technical Officer Name Role Phone eTj Cobian CNP Primary Care Provider +1- [phone] Encounter Details Date Type Department Care Team (Latest Contact Info) Description 01/30/2024 Transcribe Orders Virtual Department [address] [place] [address] Anita Gonzales PA [address] [place] [address] Gastroesophageal reflux disease, unspecified whether esophagitis present (Primary Dx); Eddy's esophagus without dysplasia Social History Tobacco Use Types Packs/Day Years [...] high school, GED, job training, learning the South African language, technical skills, or developing parenting skills)? [...] Description 07/01/2025 9:30 AM EST Office Visit [facility] [address] [place] [address] Unknown, Unknown, Anita Queen PA-C [address] [place] [address] [email or web address] documented as of this encounter Results * FL BARIUM SWALLOW ESOPHAGRAM DOUBLE CONTRAST (02/05/2024 8:50 AM EDT) Anatomical Region Laterality Modality Chest Radio Fluoroscop y 02/05/2024 1:28 PM EDT Impressions 02/05/2024 4:21 PM EDT Small sliding hiatal hernia. 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 FLUOROSCOPY TIME: 1 minute 3 seconds NUMBER OF IMAGES: [id number] ATTESTATION: Sussy Garcia as teaching physician, have reviewed the images for this case and if necessary edited the report originally created by Arcadio Ramires. Narrative 02/05/2024 4:21 PM EDT FL BARIUM SWALLOW ESOPHAGRAM DOUBLE CONTRAST HISTORY: Gastroesophageal reflux disease. COMPARISON: Upper GI endoscopy 01/03/2024. OPERATORS: Arcadio Ramires SUPERVISING PHYSICIAN: Sussy Valdovinos TECHNIQUE: Double contrast barium swallow examination was performed with Sodium Carbonate and Barium. FINDINGS: SWALLOW: No olvin aspiration. ESOPHAGUS: Motility: Within normal limits. Mucosa: There are transient transverse bands demonstrated along the mucosal margins of the distal esophagus, suggesting feline esophagus. This radiographic finding may be seen in the setting of gastroesophageal reflux disease though none was observed during this evaluation. No gross ulceration or mass demonstrated. Distensibility: Normal. GASTROESOPHAGEAL JUNCTION: Small sliding hiatal hernia. GASTROESOPHAGEAL REFLUX: None observed. TABLET: No impedance to the passage of a 13 mm barium tablet into the stomach. Visualized portion of the stomach and proximal small bowel are unremarkable. Procedure Note Sussy Valdovinos MD - 02/05/2024 FL BARIUM SWALLOW ESOPHAGRAM DOUBLE CONTRAST HISTORY: Gastroesophageal reflux disease. COMPARISON: Upper GI endoscopy 01/03/2024. OPERATORS: Arcadio Ramires SUPERVISING PHYSICIAN: Sussy Valdovinos TECHNIQUE: Double contrast barium swallow examination was performed withSodium Carbonate and Barium. FINDINGS: SWALLOW: No olvin aspiration. ESOPHAGUS: Motility: Within normal limits. Mucosa: There are transient transverse bands demonstrated along themucosal margins of the distal esophagus, suggesting feline esophagus. Thisradiographic finding may be seen in the setting of gastroesophageal refluxdisease though none was observed during this evaluation. No grossulceration or mass demonstrated. Distensibility: Normal. GASTROESOPHAGEAL JUNCTION: Small sliding hiatal hernia. GASTROESOPHAGEAL REFLUX: None observed. TABLET: No impedance to the passage of a 13 mm barium tablet into thestomach. Visualized portion of the stomach and proximal small bowel areunremarkable. IMPRESSION: Small sliding hiatal hernia. 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 FLUOROSCOPY TIME: 1 minute 3 seconds NUMBER OF IMAGES: 199 ATTESTATION: Sussy Garcia as teaching physician, have reviewed theimages for this case and if necessary edited the report originally createdby Arcadio Ramires. 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 It is not the complete legal health record.[facility]
--- OUTSIDE RECORDS SUMMARY | 2025-06-11 08:57 | XMS_ITS | Encounter Summary ---
Author Organization [facility] Address [address] [place] [address] Phone Care Team Providers Care Director Of Laboratory Operations Name Role Phone Tej Cobian CNP Primary Care Provider +1- [phone] Encounter Details Date Type Department Care Team (Late st Contact Info) Description 01/25/2024 Procedure Pass [facility] [address] [place] [address] Social History Tobacco Use Types Packs/Day Years [...] high school, GED, job training, learning the Solomon Islander language, technical skills, or developing parenting skills)? [...] Description 07/01/2025 9:30 AM EST Office Visit [facility] [address] [place] [address] Unknown, Unknown, Anita Queen PA-C [address] [address] [email or web address] documented as of this encounter Visit Diagnoses Not on filedocumented in this encounter Additional Health Concerns Assessment Noted Time PHQ-2 Depression Total Score: 0 12/11/19 24 8:58 AM EDT documented as of this encounter Care Teams Director Of Laboratory Operations Relationship Specialty Start Date End Date Tej Cobian CNP 29 [facility] [place] [address] PCP - General Family Medicine 05/15/23 documented as of this encounter Additional Source Comments The information contained in this document represents components of the legal health record. It is not the complete legal health record.[facility]
--- OUTSIDE RECORDS SUMMARY | 2025-06-11 08:57 | XMS_ITS | Encounter Summary ---
Author Organization [facility] Address [address] [place] [address] Phone Care Team Providers Care Shoe Laster Name Role Phone Tej Cobian CNP Primary Care Provider +1- [phone] Encounter Details Date Type Department Care Team (Late st Contact Info) Description 01/25/2024 Procedure Pass [facility], Ct Scan - [address] [address] Social History Tobacco Use Types Packs/Day Years Used Date Smoking Tobacco: Never Passive Smoke Exposure: Never Smokeless Tobacco: Never Alcohol Use Standard Drinks/Week Comments Not Currently 10 (1 standard drink = 0.6 oz pu re alcohol) 5 per week Child or Family Care Answer Date Record ed Do you have problems with on e of the following making it difficult for you to work, study, or receive health care? No 12/11/2023 Education Answer Date Recorded Are you interested in help w ith more adult education (for example, completing high school, GED, job training, learning the Uzbek language, technical skills, or developing parenting skills)? [...] Description 07/01/2025 9:30 AM EST Office Visit [facility] [address] [place] [address] Unknown, Unknown, Anita Queen PA-C [address] [place] [address] documented as of this encounter Visit Diagnoses Not on filedocumented in this encounter Additional Health Concerns Assessment Noted Time PHQ-2 Depression Total Score: 0 12/11/19 24 8:58 AM EDT documented as of this encounter Care Teams Shoe Laster Relationship Specialty Start Date End Date Tej Cobian CNP 29 [facility] [place] [address] PCP - General Family Medicine 05/15/23 documented as of this encounter Additional Source Comments The information contained in this document represents components of the legal health record. It is not the complete legal health record.[facility]
--- OUTSIDE RECORDS SUMMARY | 2025-06-11 08:57 | XMS_ITS | Encounter Summary ---
Author Organization [facility] Address [address] [place] [address] Phone Care Team Providers Care Nursing Project Coordinator Name Role Phone Tej Cobian CNP Primary Care Provider +1- [phone] Encounter Details Date Type Department Care Team (Late st Contact Info) Description 01/25/2024 Procedure Pass [facility] [address] [place] [address] Social History Tobacco Use Types Packs/Day Years [...] high school, GED, job training, learning the Latvian language, technical skills, or developing parenting skills)? [...] Description 07/01/2025 9:30 AM EST Office Visit [facility] [address] [place] [address] Unknown, Unknown, Anita Queen PA-C [address] [address] [email or web address] documented as of this encounter Visit Diagnoses Not on filedocumented in this encounter Additional Health Concerns Assessment Noted Time PHQ-2 Depression Total Score: 0 12/11/19 8:58 AM EDT documented as of this encounter Care Teams Nursing Project Coordinator Relationship Specialty Start Date End Date Tej Cobian CNP [address] [facility] [place] [address] PCP - General Family Medicine 05/15/23 documented as of this encounter Additional Source Comments The information contained in this document represents components of the legal health record. It is not the complete legal health record.[facility]
--- OUTSIDE RECORDS SUMMARY | 2025-06-11 08:57 | XMS_ITS | Clinical Summary ---
Author Organization [facility] Address [address] [place] [phone] Phone Care Team Providers Care Medical Record Administrator Name Role Phone Tej Cobian CNP Primary Care Provider [phone] Allergies No known active allergies Medications lansoprazole (PREVACID) 30 MG capsule TAKE 1 CAPSULE BY MOUTH EVERY DAY 90 capsule 1 5 Active tadalafiL (CIALIS) 5 MG tablet Take 5 mg by mouth every morning. 5 Active valACYclovir (VALTREX) 500 MG tabletIndicatio ns:History of herpes genitalis Take 1 tablet (500 mg total) by mouth daily. 90 tablet 5 08/25/19 26 Active valACYclovir (VALTREX) 500 MG tabletIndicatio ns:History of herpes genitalis Take 1 tablet (500 mg total) by mouth daily. 90 tablet 5 05/26/20 25 Discontinue d(Reorder) valACYclovir (VALTREX) 1000 MG tabletIndicatio ns:History of herpes genitalis Take 1 tablet (1,000 mg total) by mouth daily for 5 doses. 5 tablet 5 05/31/20 25 Active Problems Problem Noted Date Diagnosed Date Orgasmic headache 05/26/2025 Assessment & Plan (05/26/2025 5:09 PM EST): Reports episode 10 years ago and most recent episode around . Pre- orgasm, associated with neck tension/pain. Brain CT done 02/2024- normal. Will check CTA head/neck and follow-up with patient with results. No acute neurological changes. Avoid intercourse until imaging results return (notified patient of this after visit via portal message). Follow-up sooner/seek emergency help for any new/worsening symptoms Ear pain, left 02/18/2025 Assessment & Plan (02/18/2025 11:21 AM EDT): Symptoms are better today, exam unremarkable. Likely residual fluid in eustachian tube after covid. Has been treated with augment and would defer additional antibiotics. Advised, steam, neti pot and flonase. Will consider ENT eval if symptoms fail to resolve. Acute pain of right knee 02/11/2025 Assessment & Plan (02/11/2025 3:32 PM EDT): No direct trauma, suspect strain as pain started later in the day after activity not during. No swelling. Movement unrestricted. Encouraged RICE therapy for this week and may take a couple weeks to resolve. Referred to ortho in the event this does not get better. Acute mucoid otitis media of left ear 01/24/2025 Assessment & Plan (01/27/2025 5:03 PM EDT): No improvement with Amox, will change rx to Augmentin. Reviewed risks/benefits. Also prescribed Ciprodex drops to use twice a day as needed. Can use Ibuprofen/warm compresses. Advised risk of flying when infection has not healed including TM rupture and would use caution. Aware to follow-up if no improvement and/or worsening symptoms Assessment & Plan (01/24/2025 3:09 PM EDT): Will treat with steam , flonase and amoxicillin. Pt about to fly so will initiate treatment rather than observe. RTC prn. Tick bite of back 11/01/2024 Assessment & Plan (11/01/2024 12:19 PM EDT): Occurred prior to 10/23/24. Area still red/itching. Not typical presentation for EM but will treat with course of Doxycycline 100 mg BID x 10 days to cover for EM/cellulitis. Advised to take with food to avoid GI upset. Cool compress/topical cream. Reviewed signs/symptoms to monitor for, aware to follow-up if no improvement and/or worsening symptoms Chronic gastritis without bleeding 08/27/2024 History of repair of hiatal hernia 05/13/2024 Persistent testicular pain 03/22/2024 Assessment & Plan (05/26/2025 5:10 PM EST): S/p vasectomy. Struggling with pelvic floor pain. Is working with pelvic floor PT. Advised LDN is not FDA approved and used off label and I do not typically start patients on this. Could consider something like Cymbalta that is used for mood/pain but patient declines. Prefers to look into LDN- encourage to connect with online resources and/or mis specialist Assessment & Plan (10/28/2024 10:31 AM EDT): Since vasectomy 01/2024. Tried medications/PT. Feels has improved slightly but still not 100% resolved. Urology advised may be up to one year in some cases. Has follow-up visit with urology next week Assessment & Plan (03/22/2024 3:48 PM EDT): Since having vasectomy approximately two months ago. Has CT scheduled 03/26/24 and will look out for results. In the interim, encourage moist heat/Ibuprofen/Tylenol as needed. Will give short course of muscle relaxer to try but unsure if helpful. Reviewed side effects/risks/benefits, avoid ETOH use/driving while taking this medication. Based on CT results can determine next steps, expresses understanding and agreeable for plan Eddy's esophagus without dysplasia 03/05/2024 Assessment & Plan (10/28/2024 10:30 AM EDT): On PPI daily Gastroesophageal reflux dise ase with esophagitis without hemorrhage 03/05/2024 Assessment & Plan (10/28/2024 10:30 AM EDT): On PPI daily, recent endoscopy done with GI 12/2023 Transient amnesia 01/25/2024 Assessment & Plan (03/22/2024 3:48 PM EDT): No further episodes, complete work-up negative Assessment & Plan (01/25/2024 7:46 PM EDT): Episode occurred 01/24/24 and lasted approximately 30 minutes. Reports feeling well otherwise, no physical complaints. Has been fatigued today but took a sleeping pill last night and typically has that negative impact. Neurological exam within normal limits. Advised could absolutely be stress/sleep deprivation but concern for underlying cause such as TIA. Will review case with supervising physician and follow-up with patient with recommendations. Agreeable with plan. Advised in the interim for any recurrence of symptoms to call 911/seek emergency help immediately, expresses understanding and agreeable for plan Impaired fasting blood sugar 12/22/2023 Bilateral thumb pain 12/11/2023 Assessment & Plan (12/11/2023 8:46 PM EDT): Likely OA, see plan per arthritis Screening for prostate cancer 12/11/2023 Assessment & Plan (10/28/2024 10:31 AM EDT): Due 12/2024, ordered today Assessment & Plan (12/11/2023 8:46 PM EDT): Reviewed risks/benefits of screening. Labs ordered today and will follow-up with results Annual physical exam 12/10/2023 Assessment & Plan (10/28/2024 10:31 AM EDT): UTD with optho/dentist. Immunizations and preventive care reviewed. Fasting labs ordered, due 12/2024. Sees dermatology. Encourage healthy diet/regular exercise. Plan for CPE in one year, aware to follow-up sooner if needed Assessment & Plan (12/11/2023 8:47 PM EDT): Preventive care and immunizations reviewed. Fasting labs ordered today. Sees dermatology once a year for skin check. Encourage healthy diet/regular exercise. Plan for CPE in one year, aware to follow-up sooner if needed Erectile dysfunction 09/07/2023 Assessment & Plan (12/11/2023 8:46 PM EDT): Has Cialis to use as needed with improvement Assessment & Plan (09/07/2023 11:22 AM EDT): Some mild issues and interested in having a medication to use as needed. No cardiac history/HTN. Reviewed side effects/risks/benefits. Take 30 minutes prior to intercourse. 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 No SI/HI. Recently started meeting with a therapist. Is not interested in medication at this time. Aware to follow-up if patient desires medications and/or new/worsening symptoms Assessment & Plan (09/07/2023 11:23 AM EDT): Some feelings of down, trying to keep a positive attitude. Admits to a lot going on. No SI/HI. Is interested in establishing with a therapist, phone # and resources provided for patient. Aware to follow-up as needed Arthritis 05/15/2023 05/15/2023 Assessment & Plan (10/28/2024 10:29 AM EDT): In bilateral thumbs, underwent cortisone injections last week Assessment & Plan (12/11/2023 8:45 PM EDT): In bases of thumbs. 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 No obvious deformity/swelling. Discussed option of referral to ortho as likely will need injections, patient is agreeable. Referral entered and phone # provided for patient. Advised to call office if does not hear with appointment in 1-2 weeks and/or follow-up sooner if needed here Assessment & Plan (05/15/2023 12:34 PM EST): Primarily in bases of thumb, aggravated by certain movements/activities Sleep apnea 05/15/2023 05/15/2023 Assessment & Plan (05/15/2023 12:29 PM EST): Attempted to use CPAP in the past but unable to tolerate History of herpes genitalis 05/15/202304/20 Assessment & Plan (05/26/2025 5:08 PM EST): Typically takes 500 mg daily. Notes during flare up should take 1,000 mg x 3 days. RX sent for both Assessment & Plan (12/11/2023 8:50 PM EDT): On Valtrex daily with management of symptoms Assessment & Plan (05/15/2023 12:32 PM EST): Hx of genital herpes, on Valtrex daily with management of symptoms High cholesterol 05/15/2023 05/15/2023 Assessment & Plan (10/28/2024 10:29 AM EDT): History of, fasting labs last done 12/2023 with LDL at goal. Reordered to complete 12/2024. Encourage healthy diet/regular exercise Assessment & Plan (12/11/2023 8:44 PM EDT): Due for fasting labs, ordered today and will follow-up with results. Encourage healthy diet/regular exercise Assessment & Plan (09/07/2023 11:22 AM EDT): Reports last done recently with previous PCP, still no records obtained. Will have patient do [facility] and request records, plan for CPE in 2-3 months with labs prior Assessment & Plan (05/15/2023 12:31 PM EST): Had fasting labs done with previous PCP in [place] recently, will request records. Encourage healthy diet/regular exercise Nonalcoholic steatohepatitis 10/27/2022 Basal cell carcinoma of skin 10/25/2022 Overview (12/10/2023): 2016-followed by [facility] Assessment & Plan (10/28/2024 10:29 AM EDT): Following with Dr. Ridley once a year for routine skin check Assessment & Plan (12/11/2023 9:24 AM EDT): Following with [facility]- Dr. Ridley once a year, believes last visit two months ago Hiatal hernia 07/11/2022 05/15/2023 Overview (05/15/2023): Last Assessment & Plan: Previously f/b Dr Sunita DENNEY in 05/2021 s/p endoscopy With current sx despite PPI Referred to [facility] in [facility] Assessment & Plan (10/28/2024 10:30 AM EDT): Underwent surgical repair 04/2024 Assessment & Plan (03/05/2024 2:50 PM EDT): This is a 53-year-old gentleman with a known hiatal hernia and reflux and increased acid on Borja study with a new diagnosis of Eddy's esophagus. This patient is a good candidate to undergo laparoscopic hiatal hernia repair given his new diagnosis of Eddy's esophagus. The patient has a normal lower esophageal sphincter pressure so I do not believe he needs a fundoplication. We discussed laparoscopic hiatal hernia repair in detail including risk benefits and alternatives and the need to be on a pur ed diet for 2 weeks following the procedure and lifting restrictions for 4 weeks after surgery. The patient understood all of this and I answered all of his questions to his satisfaction. We will plan to schedule this procedure for sometime in the near future and the patient should follow-up with me 2 weeks following the procedure. I personally reviewed all of the records from the patient's human resources professional including his Borja study, manometry, barium swallow including images and his referral. Assessment & Plan (05/15/2023 12:32 PM EST): Diagnosed s/p endoscopy 2020. Had a follow-up with [facility] and considering surgical options but patient unsure. Is on Prevacid 30 mg daily with primarily management of symptoms. Plans to repeat endoscopy/colonoscopy 2024 Adjustment insomnia 04/02/2021 05/15/2023 Overview (05/15/2023): Last Assessment & Plan: Discussed sleep hygiene and suggested some improvements. History of KHLOE but does not tolerate CPAP. Zolpidem prescribed for infrequent use some months ago but this has not been effective. Also may have possible RLS. Plan is to do a trial of trazodone 25 mg x 1 week then 50 mg at night and then to see me in 4 weeks. May need sedating SSRI for concomitant anxiety treatment, may need sleep eval by Dr Lo since he has not been seen in 4 years, he may need treatment for KHLOE +/- RLS. Assessment & Plan (05/15/2023 12:31 PM EST): Tried Trazodone/Ambien in the past but didn't like the way it made him feel. Has underlying KHLOE but not using a CPAP and not interested. Is managing with using Melatonin as needed, good sleep hygiene Resolved Problems Problem Noted Date Diagnosed Date Resolved Date Screening and evaluation for vasectomy 09/06/2023 10/28/2024 Assessment & Plan (09/07/2023 11:21 AM EDT): Is interested in seeing/discussing with urology, referral entered and phone # provided for patient Gastroesophageal reflux dise ase without esophagitis 04/02/2021 05/15/2023 10/28/2024 Overview (05/15/2023): Upper endoscopy 05/20/[address] Garcia: IMPRESSION - Z-line irregular, 38 cm from the incisors. - A 5 cm hiatal hernia was seen. No evidence of esophagitis - Multiple gastric polyps. One was resected and retrieved. - Normal pylorus. Biopsied. - Normal examined duodenum. Biopsied. RECOMMENDATIONS - Discharge patient to home (with escort). - Advance diet as tolerated. - Continue present medications. - Await pathology results. - Recommended antireflux lifestyle modification such as: elevating the head of the bed on 4 to 6 blocks, weight loss for obese patients, avoiding recumbency for three hours after meals, avoiding bedtime snacks, avoiding fatty foods, chocolate, peppermint, onions, and garlic; avoiding cigarettes and alcohol, avoiding drugs that decrease LES pressure, and delay gastric emptying. - Return to my office at the next available appointment. Last Assessment & Plan: PPI dependent. Had evaluation and upper endoscopy by Dr Garcia 06/[address] chest 07/10 for HH evaluation. Assessment & Plan (12/11/2023 8:46 PM EDT): Following/managed by [facility]. Scheduled for endoscopy/colonoscopy 12/2023 Assessment & Plan (05/15/2023 12:33 PM EST): Endoscopy 2020. On Prevacid 30 mg daily with majority of symptoms management. Occasionally aggravated by alcohol/poor food choices. Plans to repeat endoscopy 2023 with [facility] Encounters Date Type Department Care Team Description 06/05/2025 Telephone [facility] [address] [place] [address] Tej Cobian CNP Follow-up (callback) 06/03/2025 3:41 PM EST - 06/03/2025 11:59 PM EST Hospital Encounter [address] [address] Tej Cobian CNP Discharge Disposition: Home or Self Care 06/03/2025 Ancillary Orders [address] [address] Tej Cobian CNP History of herpes genitalis (Primary Dx); Orgasmic headache; Persistent testicular pain 05/26/2025 2:30 PM EST Office Visit [address] [address] Tej Cobian CNP History of herpes genitalis (Primary Dx); Orgasmic headache; Persistent testicular pain 05/26/2025 Procedure Pass [address] [address] 04/08/2025 Refill [facility] [address] [place] [address] Larisa Morton CNP Medication Refill from Last 3 Months Immunizations Immunization Administration Dates Next Due COVID-19 (Pre-04/10) Pfizer Vaccine, mRNA, PF 09/08/2020,08/18/2020 INFLUENZA, SPLIT VIRUS, TRIVALENT PF 02/27/2024, 03/24/2014 INFLUENZA, SPLIT VIRUS, TRIV ALENT W/ PRESERVATIVE IM 04/08/2015 Influenza Quadrivalent MDCK Preservative Free IM 02/25/2022 Influenza Quadrivalent Prese rvative Free IM 03/13/2023,04/19/2021,04/15/2020,2018,04/17/2018 Influenza Quadrivalent w/ Preservative IM 04/27/2016 Influenza, Unspecified Formulation 04/19,04/15/2020,04/18/2019,2012 MMR 01/25/2016 Tdap 10/25/2022,05/01/2017 Zoster recombinant 08/16/2021,,08/17/2020,2020 Family History Medical History Relation Comments Heart disease Brother Lymphoma Father Cancer Mother Dementia Mother Relation Status Comments Brother Alive Father Mother Alive Sister Alive Social History Tobacco Use Types Packs/Day Years Used Date Smoking Tobacco: Never Passive Smoke Exposure: Never Smokeless Tobacco: Never Tobacco Cessation:Counseling Given: Not Answered Alcohol Use Standard Drinks/Week Comments Yes 10 [...] high school, GED, job training, learning the Welsh language, technical skills, or developing parenting skills)? [...] file Not on file Not on file Last Filed Vital Signs Vital Sign Reading Time Taken Comments Blood Pressure 128/70 05/26/2025 2:49 PM EST Pulse 87 05/26/2025 2:34 PM EST Temperature 36.6 C (97.8 F) 05/26/2025 2:34 PM EST Respiratory Rate 20 01/24/2025 2:31 PM EDT Oxygen Saturation 97% 05/26/2025 2:34 PM EST Inhaled Oxygen Concentration - - Weight 82.6 kg (182 lb 3.2 oz) 05/26/2025 2:34 P M EST Height 188 cm (6' 2.02 ) 02/24/2025 3:21 PM EDT Body Mass Index 23.38 02/24/2025 3:21 PM EDT Plan of Treatment Upcoming Encounters Date Type Department Care Team (Late st Contact Info) Description 07/01/2025 9:30 AM EST Office Visit [facility] [address] [place] [address] Unknown, Unknown, Anita Queen PA-C [address] [place] [phone] [email or web address] Maintenance Due Date Last Done Comments HEPATITIS A VACCINES (1 of 2 - Risk 2-dose series) 1989 PNEUMOCOCCAL VACCINES (50+ years) (1 of 2 - PCV) 1989 COLOGUARD 2015 FIT TEST 2015 FOBT 2015 SIGMOIDOSCOPY 2015 VIRTUAL COLONOSCOPY 2015 RSV VACCINE (1 - Risk 50-74 years 1-dose series) 2020 INFLUENZA VACCINE (#1) 2025 , 03/13/2023, 02/25/2022, Additional history exists COVID-19 VACCINE ( season) 2025 02/27/2024, 06/22/2023, 02/25/2022, Additional history exists DEPRESSION SCREENING 10/27/2025 10/27/2024 LIPID PANEL 12/19/2028 12/20/2023 COLONOSCOPY 01/02/2029 01/03/2024 COLORECTAL CANCER SCREENING 01/02/2029 Adult Td,Tdap Booster 10/25/2032 10/25/2022, 017 ZOSTER VACCINES Completed 08/16/2021, 03/20, 08/17/2020, Additional history exists HEPATITIS C SCREENING Completed 12/20/2023 HIV ONE-TIME SCREENING (18-65 YEARS) Completed 12/20/2023 SMOKING STATUS SCREENING (Once After 26 Yrs) Completed 05/26/2025 HIB VACCINES Aged Out No longer eligi ble based on patient's age to complete this topic MENINGOCOCCAL VACCINES (ACWY) Aged Out No longer eligible based on patient's age to complete this topic MENINGOCOCCAL VACCINES (B) Aged Out N o longer eligible based on patient's age to complete this topic Medical Devices Not on file Procedures Procedure Name Priority Date/Time Associated Diagnosis Comments CT ANGIO HEAD WITH AND WITHOUT CONTRAST, CT ANGIO NECK WITH CONTRAST Routine 06/03/2025 4:09 PM EST Orgasmic headache ENDOSCOPY, COLON 01/03/2024 1:54 PM EDT LIPID PANEL Routine 12/20/2023 8:02 AM EDT High cholesterol HEPATITIS C ANTIBODY, QUALITATIVE Routine 12/20/2023 8:02 AM EDT Need for hepatitis C screening test from Last 3 Months or Most Recently Relevant to Health Maintenance Results * CT ANGIO HEAD WITH AND [...] were performed and interpreted. COMPARISON: None. (accession [id number]), CT HEAD WITHOUT CONTRAST (accession [id number]) FINDINGS: HEAD CT: Brain Parenchyma: There is [...] reconstructionswere performed and interpreted. COMPARISON: None. (accession [id number]), CT HEAD WITHOUT [id number] (accession [id number]) FINDINGS: HEAD CT: Brain Parenchyma: There is [...] territorial infarct or intracranial hemorrhage. Tej Cobian [facility] CT HEAD/NECK Final Res ult * ENDOSCOPY, COLON (01/03/2024 1:54 PM EDT) Narrative Transcriptions Robert Madrigal MD - 01/03/2024 1:54 PM EDT [facility] [employer] [facility] Patient Name: Mariano Kwok Attending MD:: ROBERT MADRIGAL MD, Procedure Date: 01/03/2024 1:54 PM Date of : 1970 Age: 53 Admit Type: Outpatient Gender: Male Room: [place] [address] Referring MD: Tej Cobian Exam Type: Colonoscopy Indications: High risk colon cancer surveillance: Personalhistory of colonic polyps, Last colonoscopy 3 years ago Medications: Monitored Anesthesia Care Procedure: Informed consent was obtained from the patientafter discussion of the indications, limitations, alternatives, benefits, and risks of the procedure. Risks specifically discussed include but are not limited to medication reactions, missed lesions, bleeding, perforation, or the need for emergent surgery. Throughout the procedure, the patient's blood pressure, pulse, end-tidal CO2, and oxygensaturations were monitored continuously. The Olympus adult variable colonoscope [id number] #5 was introduced through the anus and advanced to the terminal ileum, with identification of theappendiceal orifice and IC valve. The colonoscopy was performed without difficulty. The patient tolerated the procedure well. The quality of the bowelpreparation was good. The terminal ileum, ileocecal valve, appendiceal orifice, and rectum werephotographed. Complications: No immediate complications. Estimated blood loss:None. Findings: The terminal ileum appeared normal. Examination of the right colon was repeated in retroflexion and again in NBI. Retroflexion wasalso performed in the rectum. A 2 mm polyp was found in the cecum. The polyp was sessile. The polyp was removed with a cold biopsy forceps. Resection and retrieval were complete. A few diverticula were found in the sigmoid colonand descending colon. The exam was otherwise without abnormality. Impression: - The examined portion of the ileum was normal. - One 2 mm polyp in the cecum, removed with a cold biopsy forceps. Resected and retrieved. - Diverticulosis in the sigmoid colon and in the descending colon. - The examination was otherwise normal. Recommendation: - Patient has a contact number available for emergencies. The signs and symptoms of potential delayed complications were discussed with thepatient. Return to normal activities tomorrow. Written discharge instructions were provided to thepatient. - Await pathology results. - Repeat colonoscopy in 5 years for surveillance. Robert Madrigal ROBERT MADRIGAL MD 01/03/2024 2:38:13 PM This report has been signed electronically. Number of Addenda: 0 Note Initiated On: 01/03/2024 1:54 PM Procedure Code(s): --- Professional --- 80449, Colonoscopy, flexible; with biopsy, single or multiple --- Technical --- 06188, Colonoscopy, flexible; with biopsy, single or multiple CPT copyright 2021 [employer]. All rights reserved. The codes documented in this report are preliminary and upon reverser reviewmay be revised to meet current compliance requirements. Procedure Date: 01/03/2024 1:54:08 PM [address] [place] [address] Tej Cobian CNP GI PROCEDURE ORDERABLES Fi nal Result * Hepatitis C antibody, qualitative (12/20/2023 8:02 AM EDT) HCV NON-REACTIV E NON-REACTI VE [facility] Blood 12/20/2023 8:02 AM EDT 12/20/2023 8:06 AM EDT Tej Cobian [employer] LAB BLOOD BKR ORDERABLES F inal Result Performing Organization Address [facility] Co de Phone Number [address] [address] * (ABNORMAL) Lipid panel (12/20/2023 8:02 AM EDT) HDL 58 mg/dL [facility] Comment: Interpretation <40 mg/dL: Low HDL cholesterol (major risk factor for CHD) Greater than or equal to 60 mg/dL: High HDL cholesterol ( negative risk factor for CHD) HDL - cholesterol is affected by a number of factors, e.g. smoking, excerise, hormones, sex and age. CHOLESTEROL 165 0 - 240 mg/dL [facility] TRIGLYCERIDES 69 30 - 160 mg/dL [facility] LDL 93 50 - 129 mg/dL [facility] Comment: LDL levels in terms of risk for coronary heart disease: <100 mg/dL: Optimal 100-129 mg/dL: Near or above optimal 130-159 mg/dL: Borderline high 160-189 mg/dL: High >190 mg/dL: Very High CARDIAC RISK RATIO 2.8(L) 3.4 - 5.0 [facility] Blood 12/20/2023 8:02 AM EDT 12/20/2023 8:06 AM EDT Tej Cobian [facility] LAB BLOOD BKR ORDERABLES F inal Result Performing Organization Address City/[facility]/ZIP Co de Phone Number [address] [address] from Last 3 Months or Most Recently Relevant to Health Maintenance Insurance [facility] UNITED POS UNITED POS Advance Directives For more information, please contact: [phone] (9AM - 5PM [facility]_[place], Monday-Monday) * Full Code (Latest Code Status on File) Date Activated Date Inactivated Comments 05/01/2024 9:20 AM Question Answer Comments Code Status Confirmed With: Patient Care Teams Medical Record Administrator Relationship Specialty Start Date End Date Tej Cobian CNP [address] [place] [id number] PCP - General Family Medicine 05/15/23 Additional Source Comments The information contained in this document represents components of the legal health record. It is not the complete legal health record.[facility]
[2025-06-11 09:03] VITALS: BP 110/82
== END 2025-06-11 09:59 | disposition home or self-care (01) ==
LOC: HO.HVS 08:52
PROVIDERS: Visit Provider Surgery Vascular Surgery
DX: I65.21 Occlusion and stenosis of right carotid artery (principal)
CPT/HCPCS: 99204